=== PATIENT | male | born 1965 | race Caucasian/White ===

== ENCOUNTER 2017-09-25 16:11 | Emergency (ER) | END 2017-09-25 20:26 | disposition left against medical advice (07) ==

== ENCOUNTER 2018-06-13 22:34 | Observation (INO) | payer SELFPAY ==
[~2018-06-13] VITALS: Ht 172.7 cm; Wt 103.3 kg
[2018-06-14] VITALS (8 sets, daily range): BP systolic 125–144; BP diastolic 78–87; PULSE 69–92; RESP 18–20; Ht 172.7 cm; Wt 103.3 kg
[2018-06-14] MEDS ORDERED: NITROGLYCERIN (SL) 0.4 MG TAB SL ONE
--- NOTE | 2018-06-14 00:39 | ERD ---
ER Documentation Chief Complaint Chief Complaint LEFT SIDED CHEST PAIN, "PRESSURE", 5/10, RADIATES LEFT ARM HPI This is a 52-year-old male with a history of hypertension who presents to the emergency room for evaluation of chest pain. The patient states his chest pain started 3 hours prior to arrival in the describes as a pressure-like sensation in the center of his chest with radiation to the left arm. Patient states that he also has some numbness and tingling in the left arm which started 30 minutes after his chest pain. The patient states that he has not seen a physician here in the [place] and the last time he saw physician was last year in the country of [facility]. He is not taking any medication at this time except for his hyper tension medication. He does not know the name of it. He denies any fevers or chills or nausea or vomiting associated with this. ROS All systems reviewed and are negative except as per history of present illness. Allergies Allergies: Coded Allergies: No Known Allergies (Verified Allergy, Unknown, 06/13/18) PMhx/Soc Medical and Surgical Hx: pt denies Medical Hx History of Surgery: Yes (LAP NATE ) Hx Alcohol Use: No Hx Substance Use: No Hx Tobacco Use: No Smoking Status: Never smoker Physical Exam Vitals Vital Signs Date Temp Pulse Resp B/P (MAP) Pulse Ox O2 O2 Flow FiO2 Time Delivery Rate 06/13/18 78 16 137/89 95 Room Air 23:15 (105) 06/13/18 97.3 82 18 146/84 95 22:38 (104) Physical Exam INITIAL VITAL SIGNS: Reviewed by me GENERAL: The patient is well developed and appropriate for usual state of health in no apparent distress HEENT: Pupils equal, round, and reactive to light. EOMI. There is no scleral icterus. NECK: C-spine is soft and supple, there is no meningismus. There is no cervical lymphadenopathy. LUNGS: Clear to auscultation bilaterally. There are no rales, wheezes or rhonchi. HEART: Regular rate and rhythm, no murmurs, clicks, rubs or gallops. ABDOMEN: Soft, non-tender, non-distended. There are bowel sounds in all four quadrants. No rebound or guarding. EXTREMITIES: There is no peripheral cyanosis or edema. No focal swelling or erythema. NEUROLOGICAL: The patient moves all four extremities with 5/5 strength. Cranial nerves II - XII are intact. Normal gait. Alert and oriented SKIN: There is no apparent rash or petechiae. HEME/LYMPHATIC: There is no evidence of excessive bruising or lymphedema. PSYCHIATRIC: The patient does not appear anxious or depressed. Result Diagram: 06/13/18231106/13/182311 Results 24 hrs Laboratory Tests Test 06/13/18 23:12 White Blood Count 7.2 10^3/ul Red Blood Count 5.25 10^6/ul Hemoglobin 16.6 g/dl Hematocrit 47.6 % Mean Corpuscular Volume 90.7 fl Mean Corpuscular Hemoglobin 31.6 pg Mean Corpuscular Hemoglobin Concent 34.9 g/dl Red Cell Distribution Width 12.7 % Platelet Count 208 10^3/UL Mean Platelet Volume 9.1 fl Immature Granulocytes % 0.300 % Neutrophils % 50.3 % Lymphocytes % 37.9 % Monocytes % 8.1 % Eosinophils % 2.7 % Basophils % 0.7 % Nucleated Red Blood Cells % 0.0 /100WBC Immature Granulocytes # 0.020 10^3/ul Neutrophils # 3.6 10^3/ul Lymphocytes # 2.7 10^3/ul Monocytes # 0.6 10^3/ul Eosinophils # 0.2 10^3/ul Basophils # 0.1 10^3/ul Nucleated Red Blood Cells # 0.0 10^3/ul Sodium Level 138 mmol/L Potassium Level 4.0 mmol/L Chloride Level 100 mmol/L Carbon Dioxide Level 27 mmol/L Anion Gap 11 Blood Urea Nitrogen 18 mg/dl Creatinine 0.99 mg/dl Est Glomerular Filtrat Rate mL/min > 60 mL/min Glucose Level 296 mg/dl Calcium Level 9.6 mg/dl Troponin I < 0.012 ng/ml Current Medications Medications Dose Sig/Neil Start Time Status Last (Trade) Ordered Route PRN Stop Time Admin Dose Reason Admin 1 tab ONCE ONCE 06/14/18 DC Nitroglycerin SL 00:00 06/14/18 00:01 (Nitroglyceri n (Sl Tab) 0.4 Mg) Procedures/MDM EKG: Rate/Rhythm: [Normal Sinus Rhythm] QRS, ST, T-waves: [Nonspecific T wave abnormalities noted in the anterior lateral leads] Impression: [No evidence of ischemia or arrhythmia] Chest X-ray 1V Interpreted by me: Soft Tissue: No acute abnormalities Bones: No acute abnormalities Mediastinum/Cardiac Silhouette/Lungs: Cardiomegaly This 52-year-old male presents to the ER for evaluation of chest pain. The patient describes the chest pain is substernal with radiation to the back and associated with some mild left arm paresthesias. The patient had an EKG which does show some nonspecific T wave abnormalities. The patient does not have good follow-up as an outpatient is not seen a physician in the [facility] and given his age and risk factors and T wave abnormalities on his EKG with likely undiagnosed diabetes given his hyperglycemia ,the patient will need admission at this time for serial troponins and possible cardiology consult. The patient will be placed on telemetry floor and will be admitted to panel physician. Departure Diagnosis: Primary Impression: Chest pain Additional Impression: Hyperglycemia Condition: CORTEZ Dunbar DO Jun 14, 2018 00:39
[2018-06-14] MEDS ORDERED: ONDANSETRON 4 MG INJ IV PRN ×2 (03:00)
[2018-06-14] MEDS ORDERED: NACL 0.9% 3 ML SYG IV SCH (03:00)
[2018-06-14] MEDS ORDERED: NITROGLYCERIN (SL) 0.4 MG TAB SL PRN (03:00)
[2018-06-14] MEDS ORDERED: ACETAMINOPHEN 325 MG TAB PO PRN ×2 (03:00)
[2018-06-14] MEDS ORDERED: ALBUTEROL/IPRATROPIUM (NEB) 3 ML AMP HHN PRN (03:00)
[2018-06-14] MEDS ORDERED: GLUCOSE GEL 15 GRAM TUBE BUCCAL PRN (03:15)
[2018-06-14] MEDS ORDERED: DEXTROSE 50% 50 ML SYRINGE IV PRN ×2 (03:15)
[2018-06-14] MEDS ORDERED: GLUCAGON 1 MG INJ IM PRN (03:15)
[2018-06-14] MEDS ORDERED: GLUCOSE GEL 15 GRAM TUBE PO PRN ×2 (03:15)
--- NOTE | 2018-06-14 05:15 | HP ---
Date/Time of Note Date/Time of Note DATE: 06/14/18 TIME: 05:10 Assessment/Plan VTE Prophylaxis Pharmacological prophylaxis: heparin Lines/Catheters IV Catheter Type (from Nrsg): Saline Lock Assessment/Plan Assessment/Plan 1. Chest pain with abnormal EKG (TWI) -Admit to telemetry unit -Rule out ACS -Supplemental oxygen, aspirin, statin. As needed nitro and morphine. Beta- arabella if blood pressure and heart rate tolerates -Trend troponin -2D echo and cardiology consult -Check A1c, fasting lipid and TSH in a.m. 2. Hyperglycemia, likely undiagnosed diabetes -Check A1c -Insulin while in house Result Diagram: 06/13/18 2312 06/13/18 2312 Results 24hrs Laboratory Tests Test 06/13/18 23:12 White Blood Count 7.2 Red Blood Count 5.25 Hemoglobin 16.6 Hematocrit 47.6 Mean Corpuscular Volume 90.7 Mean Corpuscular Hemoglobin 31.6 Mean Corpuscular Hemoglobin Concent 34.9 Red Cell Distribution Width 12.7 Platelet Count 208 Mean Platelet Volume 9.1 Immature Granulocytes % 0.300 Neutrophils % 50.3 Lymphocytes % 37.9 Monocytes % 8.1 Eosinophils % 2.7 Basophils % 0.7 Nucleated Red Blood Cells % 0.0 Immature Granulocytes # 0.020 Neutrophils # 3.6 Lymphocytes # 2.7 Monocytes # 0.6 Eosinophils # 0.2 Basophils # 0.1 Nucleated Red Blood Cells # 0.0 Sodium Level 138 Potassium Level 4.0 Chloride Level 100 Carbon Dioxide Level 27 Anion Gap 11 Blood Urea Nitrogen 18 Creatinine 0.99 Est Glomerular Filtrat Rate mL/min > 60 Glucose Level 296 H Calcium Level 9.6 Troponin I < 0.012 HPI/ROS Admit Date/Time Admit Date/Time Jun 14, 2018 at 02:36 Hx of Present Illness This is a 52-year-old male with no significant past medical history presented to ER complaining of chest pain. Pain started a few hours prior to arrival to the ER. It's mainly left-sided, that is started in the middle of his chest. Reported associated left arm numbness. Denied associated nausea/vomiting or diaphoresis. Also denies shortness of breath. When presented to ER, vitals were stable. First troponin negative. EKG shows T wave inversion without ST elevation or depression. CBC and CMP unremarkable except a glucose of 296. Chest x-ray without acute findings. PMH/Family/Social Past Medical History Medical History: other (See HPI) Medications Current Medications Ondansetron HCl (Zofran Inj) 4 mg ER BRIDGE PRN IV NAUSEA/VOMITING; Start 06/14/18 at 03:00; Stop 06/15/18 at 02:59 Acetaminophen (Tylenol Tab) 650 mg ER BRIDGE PRN PO .MILD PAIN 1-3 OR TEMP; Start 06/14/18 at 03:00; Stop 06/15/18 at 02:59 IV Flush (NS 3 ml) 3 ml PER PROTOCOL IV ; Start 06/14/18 at 03:00 Ondansetron HCl (Zofran Inj) 4 mg Q6H PRN IV NAUSEA/VOMITING; Start 06/14/18 at 03:00 Aspirin (Aspirin) 81 mg DAILY PO ; Start 06/14/18 at 09:00 Nitroglycerin (Nitroglycerin (Sl Tab) 0.4 Mg) 1 tab Q5M PRN SL .CHEST PAIN; Start 06/14/18 at 03:00 Acetaminophen (Tylenol Tab) 650 mg Q6H PRN PO .PAIN 1-3 OR TEMP; Start 06/14/18 at 03:00 Heparin Sodium (Porcine) (Heparin (5000 Units/1ml)) 5,000 unit Q12 SC ; Start 06/14/18 at 09:00 Albuterol/ Ipratropium (Duoneb) 3 ml Q2H RESP THERAPY PRN HHN SHORTNESS OF BREATH; Start 06/14/18 at 03:00 Diagnostic Test (Pha) (Accu-Chek) 1 ea 02 XX ; Start 06/15/18 at 02:00 Insulin Glargine (Lantus) 15 units DAILY@2000 SC ; Start 06/14/18 at 20:00 Insulin Aspart (Novolog Insulin Pen) 5 unit WITH MEALS SC ; Start 06/14/18 at 08:00 Insulin Aspart (Novolog Insulin Pen) NOVOLOG *MODERATE* ALGORITHM WITH MEALS BEDTIME SC ; Start 06/14/18 at 08:00 Miscellaneous Information 1 ea NOTE XX ; Start 06/14/18 at 03:15 Glucose (Glutose) 15 gm Q15M PRN PO DECREASED GLUCOSE; Start 06/14/18 at 03:15 Glucose (Glutose) 22.5 gm Q15M PRN PO DECREASED GLUCOSE; Start 06/14/18 at 03:15 Dextrose (D50w Syringe) 25 ml Q15M PRN IV DECREASED GLUCOSE; Start 06/14/18 at 03:15 Dextrose (D50w Syringe) 50 ml Q15M PRN IV DECREASED GLUCOSE; Start 06/14/18 at 03:15 Glucagon (Glucagen) 1 mg Q15M PRN IM DECREASED GLUCOSE; Start 06/14/18 at 03:15 Glucose (Glutose) 15 gm Q15M PRN BUCCAL DECREASED GLUCOSE; Start 06/14/18 at 03:15 Coded Allergies: No Known Allergies (Verified Allergy, Unknown, 06/13/18) Past Surgical History Past Surgical Hx: other (See HPI) Family History Significant Family History: no pertinent family hx Social History Alcohol Use: none Smoking Status: Never smoker Drug Use: none Exam/Review of Systems Vital Signs Vitals Vital Signs Date Temp Pulse Resp B/P (MAP) Pulse Ox O2 O2 Flow FiO2 Time Delivery Rate 06/14/18 84 16 130/93 98 Room Air 03:39 (105) 06/13/18 97.3 22:38 Exam Constitutional: other (No acute distress) Head: normocephalic, atraumatic Eyes: EOMI, PERRL Respiratory: clear to auscultation, normal air movement Cardiovascular: regular rate and rhythm, nl pulses Gastrointestinal: soft, non-tender Extremities: normal pulses LYN CAMACHO MD Jun 14, 2018 05:15
[2018-06-14] MEDS ORDERED: ASPIRIN 81 MG TAB PO SCH (09:00)
[2018-06-14] MEDS ORDERED: HEPARIN 5,000 UNIT/1 ML VIAL SC SCH (09:00)
[2018-06-14] MEDS ORDERED: METOPROLOL 25 MG TAB PO SCH (09:00)
[2018-06-14] MEDS: INSULIN ASPART [NOVOLOG] 3 ML PEN SC SCH ×5 (09:42→18:00)
--- NOTE | 2018-06-14 12:56 | PN ---
Date/Time of Note Date/Time of Note DATE: 06/14/18 TIME: 12:53 Assessment/Plan VTE Prophylaxis SCD applied (from Nsg): No SCD contraindicated: other Pharmacological prophylaxis: heparin Lines/Catheters IV Catheter Type (from Nrsg): Saline Lock Assessment/Plan Hospital Course S: No acute events overnight, waiting to be seen by cardiology team. Denies any chest pain presently. O: VS - see below PE: GENERAL: Lying in bed, no acute distress HEENT: Pupils equal, round, and reactive to light. EOMI. There is no scleral icterus. NECK: C-spine is soft and supple, there is no meningismus. There is no cervi gerri lymphadenopathy. LUNGS: Clear to auscultation bilaterally. There are no rales, wheezes or rhonc hi. HEART: Regular rate and rhythm, no murmurs, clicks, rubs or gallops. ABDOMEN: Soft, non-tender, non-distended. There are bowel sounds in all four quadrants. No rebound or guarding. EXTREMITIES: No lower extremity edema bilaterally NEUROLOGICAL: No focal deficit Assessment/Plan: 52-year-old male who presents with: 1. Chest pain -EKG with abnormal findings (TWI), troponin negative thus far. -Admit to telemetry unit-Rule out ACS -Continue supplemental oxygen, aspirin, statin. As needed nitro and morphine. Beta-arabella if blood pressure and heart rate tolerates -Trend troponin -Follow-up results of 2D echo and will obtain cardiology consult -Follow-up results of A1c, fasting lipid and TSH in a.m. 2. Hyperglycemia-sugars are in the 300 range when the patient was admitted- likely undiagnosed diabetes. Sugars improved since admission. -Follow-up results of A1c -Continue insulin sliding scale and Lantus while in house Result Diagram: 06/14/18 0525 06/14/18 0525 Results 24hrs Laboratory Tests Test 06/13/18 23:12 06/14/18 05:25 06/14/18 08:31 06/14/18 10:35 White Blood Count 7.2 7.0 Red Blood Count 5.25 5.26 Hemoglobin 16.6 16.4 Hematocrit 47.6 46.9 Mean Corpuscular 90.7 89.2 Volume Mean Corpuscular 31.6 31.2 Hemoglobin Mean Corpuscular 34.9 35.0 Hemoglobin Concent Red Cell 12.7 13.0 Distribution Width Platelet Count 208 193 Mean Platelet Volume 9.1 9.4 Immature 0.300 0.300 Granulocytes % Neutrophils % 50.3 50.4 Lymphocytes % 37.9 38.4 Monocytes % 8.1 7.3 Eosinophils % 2.7 3.0 Basophils % 0.7 0.6 Nucleated Red Blood 0.0 0.0 Cells % Immature 0.020 0.020 Granulocytes # Neutrophils # 3.6 3.5 Lymphocytes # 2.7 2.7 Monocytes # 0.6 0.5 Eosinophils # 0.2 0.2 Basophils # 0.1 0.0 Nucleated Red Blood 0.0 0.0 Cells # Sodium Level 138 140 Potassium Level 4.0 3.9 Chloride Level 100 103 Carbon Dioxide Level 27 25 Anion Gap 11 12 Blood Urea Nitrogen 18 16 Creatinine 0.99 0.84 Est Glomerular > 60 > 60 Filtrat Rate mL/min Glucose Level 296 H 174 # Calcium Level 9.6 9.3 Troponin I < 0.012 < 0.012 < 0.012 Magnesium Level 1.9 Total Bilirubin 0.5 Direct Bilirubin 0.00 Indirect Bilirubin 0.5 Aspartate Amino 38 Transf (AST/SGOT) Alanine 64 Aminotransferase (AL T/SGPT) Alkaline Phosphatase 99 Creatine Kinase 71 77 Creatine Kinase 0.5 0.3 Index Creatinine Kinase MB 0.38 0.24 (Mass) Total Protein 7.5 Albumin 4.2 Globulin 3.30 H Albumin/Globulin 1.27 Ratio Triglycerides Level 244 H Cholesterol Level 116 LDL Cholesterol, 37 Calculated HDL Cholesterol 30 Cholesterol/HDL 3.8 Ratio Thyroid Stimulating 1.860 Hormone (TSH) Bedside Glucose 212 Test 06/14/18 12:07 Bedside Glucose 170 Exam/Review of Systems Exam Vitals Vital Signs Date Temp Pulse Resp B/P (MAP) Pulse Ox O2 O2 Flow FiO2 Time Delivery Rate 06/14/18 70 12:00 06/14/18 99.0 20 125/85 93 11:29 (98) 06/14/18 Room Air 03:39 Results Results 24hrs Laboratory Tests Test 06/13/18 23:12 06/14/18 05:25 06/14/18 08:31 06/14/18 10:35 White Blood Count 7.2 7.0 Red Blood Count 5.25 5.26 Hemoglobin 16.6 16.4 Hematocrit 47.6 46.9 Mean Corpuscular 90.7 89.2 Volume Mean Corpuscular 31.6 31.2 Hemoglobin Mean Corpuscular 34.9 35.0 Hemoglobin Concent Red Cell 12.7 13.0 Distribution Width Platelet Count 208 193 Mean Platelet Volume 9.1 9.4 Immature 0.300 0.300 Granulocytes % Neutrophils % 50.3 50.4 Lymphocytes % 37.9 38.4 Monocytes % 8.1 7.3 Eosinophils % 2.7 3.0 Basophils % 0.7 0.6 Nucleated Red Blood 0.0 0.0 Cells % Immature 0.020 0.020 Granulocytes # Neutrophils # 3.6 3.5 Lymphocytes # 2.7 2.7 Monocytes # 0.6 0.5 Eosinophils # 0.2 0.2 Basophils # 0.1 0.0 Nucleated Red Blood 0.0 0.0 Cells # Sodium Level 138 140 Potassium Level 4.0 3.9 Chloride Level 100 103 Carbon Dioxide Level 27 25 Anion Gap 11 12 Blood Urea Nitrogen 18 16 Creatinine 0.99 0.84 Est Glomerular > 60 > 60 Filtrat Rate mL/min Glucose Level 296 H 174 # Calcium Level 9.6 9.3 Troponin I < 0.012 < 0.012 < 0.012 Magnesium Level 1.9 Total Bilirubin 0.5 Direct Bilirubin 0.00 Indirect Bilirubin 0.5 Aspartate Amino 38 Transf (AST/SGOT) Alanine 64 Aminotransferase (AL T/SGPT) Alkaline Phosphatase 99 Creatine Kinase 71 77 Creatine Kinase 0.5 0.3 Index Creatinine Kinase MB 0.38 0.24 (Mass) Total Protein 7.5 Albumin 4.2 Globulin 3.30 H Albumin/Globulin 1.27 Ratio Triglycerides Level 244 H Cholesterol Level 116 LDL Cholesterol, 37 Calculated HDL Cholesterol 30 Cholesterol/HDL 3.8 Ratio Thyroid Stimulating 1.860 Hormone (TSH) Bedside Glucose 212 Test 06/14/18 12:07 Bedside Glucose 170 Medications Medication Current Medications Ondansetron HCl (Zofran Inj) 4 mg ER BRIDGE PRN IV NAUSEA/VOMITING; Start 06/14/18 at 03:00; Stop 06/15/18 at 02:59 Acetaminophen (Tylenol Tab) 650 mg ER BRIDGE PRN PO .MILD PAIN 1-3 OR TEMP; Start 06/14/18 at 03:00; Stop 06/15/18 at 02:59 IV Flush (NS 3 ml) 3 ml PER PROTOCOL IV ; Start 06/14/18 at 03:00 Ondansetron HCl (Zofran Inj) 4 mg Q6H PRN IV NAUSEA/VOMITING; Start 06/14/18 at 03:00 Aspirin (Aspirin) 81 mg DAILY PO Last administered on 06/14/18at 09:32; Admin Dose 81 MG; Start 06/14/18 at 09:00 Nitroglycerin (Nitroglycerin (Sl Tab) 0.4 Mg) 1 tab Q5M PRN SL .CHEST PAIN; Start 06/14/18 at 03:00 Acetaminophen (Tylenol Tab) 650 mg Q6H PRN PO .PAIN 1-3 OR TEMP; Start 06/14/18 at 03:00 Heparin Sodium (Porcine) (Heparin (5000 Units/1ml)) 5,000 unit Q12 SC Last administered on 06/14/18at 10:25; Admin Dose 5,000 UNIT; Start 06/14/18 at 09:00 Albuterol/ Ipratropium (Duoneb) 3 ml Q2H RESP THERAPY PRN HHN SHORTNESS OF BREATH; Start 06/14/18 at 03:00 Diagnostic Test (Pha) (Accu-Chek) 1 ea 02 XX ; Start 06/15/18 at 02:00 Insulin Glargine (Lantus) 15 units DAILY@2000 SC ; Start 06/14/18 at 20:00 Insulin Aspart (Novolog Insulin Pen) 5 unit WITH MEALS SC Last administered on 06/14/18at 09:43; Admin Dose 5 UNIT; Start 06/14/18 at 08:00 Insulin Aspart (Novolog Insulin Pen) NOVOLOG *MODERATE* ALGORITHM WITH MEALS BEDTIME SC Last administered on 06/14/18at 09:42; Admin Dose 4 UNIT; Start 06/14/18 at 08:00 Miscellaneous Information 1 ea NOTE XX ; Start 06/14/18 at 03:15 Glucose (Glutose) 15 gm Q15M PRN PO DECREASED GLUCOSE; Start 06/14/18 at 03:15 Glucose (Glutose) 22.5 gm Q15M PRN PO DECREASED GLUCOSE; Start 06/14/18 at 03:15 Dextrose (D50w Syringe) 25 ml Q15M PRN IV DECREASED GLUCOSE; Start 06/14/18 at 03:15 Dextrose (D50w Syringe) 50 ml Q15M PRN IV DECREASED GLUCOSE; Start 06/14/18 at 03:15 Glucagon (Glucagen) 1 mg Q15M PRN IM DECREASED GLUCOSE; Start 06/14/18 at 03:15 Glucose (Glutose) 15 gm Q15M PRN BUCCAL DECREASED GLUCOSE; Start 06/14/18 at 03:15 Atorvastatin Calcium (Lipitor) 40 mg HS PO ; Start 06/14/18 at 21:00 Metoprolol Tartrate (Lopressor) 12.5 mg BID PO Last administered on 06/14/18at 09:33; Admin Dose 12.5 MG; Start 06/14/18 at 09:00 NILS CARREON Jun 14, 2018 12:56
--- NOTE | 2018-06-14 15:08 | RADRPT ---
Echocardiogram Report Patient Name: GLENN HUBERPatient ID: [id number] : 1965 (52y 9m)Study Date: 06/14/2018 8:11:44 AM Gender: MAccession #: [id number] Tech: Jammie Smith [facility] Location: [facility] Ref.Physician: LYN CAMACHO Height(Cm): BSA: Weight(Kg): Quality: Technically Difficult StudyAccount #: Procedures: Echocardiographic Report: Transthoracic echocardiogram with complete 2D, M-Mode, and doppler examination. Indications: Chest Pain. Measurements: 2D/M Mode Doppler Measurement Value Normal Range Measurement Value Normal Range LVIDd 2D 3.5 [ 4.2 - 5.8 ] cm AV Peak Pio 1.0 [ 100.0 - 170.0 ] cm/se c LVIDs 2D 2.3 [ 2.5 - 4.0 ] cm AV Peak PG 4.0 [ 2.0 - 9.0 ] mmHg LVPWd 2D 1.1 [ 0.6 - 1.0 ] cm LVOT Peak Pio 0.9 [ 70.0 - 110.0 ] cm/sec IVSd 2D 1.0 [ 0.6 - 1.0 ] cm LVOT Peak PG 3.0 [ 2.0 - 6.0 ] mmHg AoR Diam 2D 2.9 [ 2.6 - 3.4 ] cm MV E Peak Pio 0.5 [ 60.0 - 130.0 ] cm/sec EDV 2D 51.9 [ 62.0 - 150.0 ] ml MV A Peak Pio 0.7 [ 100.0 - 120.0 ] cm/se c ESV 2D 17.9 [ 21.0 - 61.0 ] ml MV E/A 0.8 [ 0.8 - 1.5 ] ratio EF 2D 65.5 [ 52.0 - 72.0 ] percent MV PHT 41.0 [ 20.0 - 100.0 ] msec LA Dimen 2D 3.8 [ 3.0 - 4.0 ] cm MV Decel Time 141 [ 104 - 258 ] msec MV Decel Morrison 4 Lat E` Pio 0.1 [ 10.0 - 15.0 ] cm/sec Lateral E/E` 4.9 [ 1.0 - 2.0 ] ratio Med E` Pio 0.1 cm/sec MV E/A 0.8 [ 0.8 - 1.5 ] ratio MVA PHT 5.4 [ 2.0 - 4.0 ] cm2 Findings: Left Ventricle: Normal left ventricular systolic function. Normal left ventricular cavity size. Normal left ventricular wall thickness. Ejection fraction is visually estimated at 55-60 %. Tissue Doppler/Mitral Doppler indices are consistent with impaired relaxation (Stage I diastolic dysfunction). Right Ventricle: Normal right ventricular size. Normal right ventricular systolic function. Left Atrium: The left atrium is normal in size. Right Atrium: The right atrium is normal in size. Atrial Septum: Normal atrial septum. Ventricular septum: Normal/intact ventricular septum. Mitral Valve: Normal appearance of the mitral valve. No mitral valve regurgitation is seen. Aortic Valve: Normal appearance of the aortic valve. No aortic regurgitation. Tricuspid Valve: Normal appearance of the tricuspid valve. No evidence of tricuspid regurgitation. Pulmonic Valve: Normal pulmonic valve appearance. No evidence of pulmonic regurgitation. Pericardium: Normal pericardium with no significant pericardial effusion. Aorta: Normal aortic root. IVC: The IVC is not well visualized. Conclusions: Normal left ventricular systolic function. Normal left ventricular cavity size. Normal left ventricular wall thickness. Ejection fraction is visually estimated at 55-60 %. Tissue Doppler/Mitral Doppler indices are consistent with impaired relaxation (Stage I diastolic dysfunction). ). Electronically Signed By: Yovanny Hickman 2018-06-14 15:08:01 PDT
--- NOTE | 2018-06-14 16:03 | CONS ---
Assessment/Plan Assessment/Plan Hospital Course (Demo Recall) Assessment: Chest pain Diabetes mellitus - new diagnosis Recommendations: -ruled out for myocardial infarction -echocardiogram normal -outpatient cardiac stress testing -aspirin 81mg daily Consultation Date/Type/Reason Admit Date/Time Jun 14, 2018 at 02:36 Type of Consult Cardiology Reason for Consultation chest pain Date/Time of Note DATE: 06/14/18 TIME: 15:59 Hx of Present Illness The patient is a 52 year-old male who presented with chest pain. He reports a left-sided chest pressure with radiation down his left arm which started while he was seated watching television. The pain lasted for one hour and then resolved. He has been free of chest pain ever since. EKG showed sinus rhythm with nonspecific T wave flattening. Troponins have been negative x 3. 14 point review of systems negative other than per HPI. Past Medical History Medical History: no pertinent history Medications Current Medications Ondansetron HCl (Zofran Inj) 4 mg ER BRIDGE PRN IV NAUSEA/VOMITING; Start 06/14/18 at 03:00; Stop 06/15/18 at 02:59 Acetaminophen (Tylenol Tab) 650 mg ER BRIDGE PRN PO .MILD PAIN 1-3 OR TEMP; Start 06/14/18 at 03:00; Stop 06/15/18 at 02:59 IV Flush (NS 3 ml) 3 ml PER PROTOCOL IV ; Start 06/14/18 at 03:00 Ondansetron HCl (Zofran Inj) 4 mg Q6H PRN IV NAUSEA/VOMITING; Start 06/14/18 at 03:00 Aspirin (Aspirin) 81 mg DAILY PO Last administered on 06/14/18at 09:32; Admin Dose 81 MG; Start 06/14/18 at 09:00 Nitroglycerin (Nitroglycerin (Sl Tab) 0.4 Mg) 1 tab Q5M PRN SL .CHEST PAIN; Start 06/14/18 at 03:00 Acetaminophen (Tylenol Tab) 650 mg Q6H PRN PO .PAIN 1-3 OR TEMP; Start 06/14/18 at 03:00 Heparin Sodium (Porcine) (Heparin (5000 Units/1ml)) 5,000 unit Q12 SC Last administered on 06/14/18at 10:25; Admin Dose 5,000 UNIT; Start 06/14/18 at 09:00 Albuterol/ Ipratropium (Duoneb) 3 ml Q2H RESP THERAPY PRN HHN SHORTNESS OF BREATH; Start 06/14/18 at 03:00 Diagnostic Test (Pha) (Accu-Chek) 1 ea 02 XX ; Start 06/15/18 at 02:00 Insulin Glargine (Lantus) 15 units DAILY@2000 SC ; Start 06/14/18 at 20:00 Insulin Aspart (Novolog Insulin Pen) 5 unit WITH MEALS SC Last administered on 06/14/18at 13:19; Admin Dose 5 UNIT; Start 06/14/18 at 08:00 Insulin Aspart (Novolog Insulin Pen) NOVOLOG *MODERATE* ALGORITHM WITH MEALS BEDTIME SC Last administered on 06/14/18at 13:19; Admin Dose 2 UNIT; Start 06/14/18 at 08:00 Miscellaneous Information 1 ea NOTE XX ; Start 06/14/18 at 03:15 Glucose (Glutose) 15 gm Q15M PRN PO DECREASED GLUCOSE; Start 06/14/18 at 03:15 Glucose (Glutose) 22.5 gm Q15M PRN PO DECREASED GLUCOSE; Start 06/14/18 at 03:15 Dextrose (D50w Syringe) 25 ml Q15M PRN IV DECREASED GLUCOSE; Start 06/14/18 at 03:15 Dextrose (D50w Syringe) 50 ml Q15M PRN IV DECREASED GLUCOSE; Start 06/14/18 at 03:15 Glucagon (Glucagen) 1 mg Q15M PRN IM DECREASED GLUCOSE; Start 06/14/18 at 03:15 Glucose (Glutose) 15 gm Q15M PRN BUCCAL DECREASED GLUCOSE; Start 06/14/18 at 03:15 Atorvastatin Calcium (Lipitor) 40 mg HS PO ; Start 06/14/18 at 21:00 Metoprolol Tartrate (Lopressor) 12.5 mg BID PO Last administered on 06/14/18at 09:33; Admin Dose 12.5 MG; Start 06/14/18 at 09:00 Allergies: Coded Allergies: No Known Allergies (Verified Allergy, Unknown, 06/13/18) Past Surgical History Past Surgical Hx: cholecystectomy Family History Significant Family History: no pertinent family hx Social History Alcohol Use: none Smoking Status: Never smoker Drug Use: none Exam/Review of Systems Vital Signs Vitals Vital Signs Date Temp Pulse Resp B/P (MAP) Pulse Ox O2 O2 Flow FiO2 Time Delivery Rate 06/14/18 98.9 92 20 144/86 94 15:41 (105) 06/14/18 Room Air 03:39 Exam Constitutional: alert, well developed Psych: no complaints, nl mood/affect Head: normocephalic, atraumatic Eyes: nl conjunctiva, nl lids ENMT: nl external ears & nose, nl nasal mucosa & septum Neck: supple, non-tender; No jvd Respiratory: clear to auscultation, normal air movement Cardiovascular: regular rate and rhythm Gastrointestinal: soft, non-tender Musculoskeletal: nl extremities to inspection Extremities: No cyanosis, No clubbing, No edema Neurological: nl mental status, nl speech Labs Result Diagram: 06/14/1852406/14/18524 Results 24hrs Laboratory Tests Test 06/13/18 23:12 06/14/18 05:25 06/14/18 08:31 06/14/18 10:35 White Blood Count 7.2 7.0 Red Blood Count 5.25 5.26 Hemoglobin 16.6 16.4 Hematocrit 47.6 46.9 Mean Corpuscular 90.7 89.2 Volume Mean Corpuscular 31.6 31.2 Hemoglobin Mean Corpuscular 34.9 35.0 Hemoglobin Concent Red Cell 12.7 13.0 Distribution Width Platelet Count 208 193 Mean Platelet Volume 9.1 9.4 Immature 0.300 0.300 Granulocytes % Neutrophils % 50.3 50.4 Lymphocytes % 37.9 38.4 Monocytes % 8.1 7.3 Eosinophils % 2.7 3.0 Basophils % 0.7 0.6 Nucleated Red Blood 0.0 0.0 Cells % Immature 0.020 0.020 Granulocytes # Neutrophils # 3.6 3.5 Lymphocytes # 2.7 2.7 Monocytes # 0.6 0.5 Eosinophils # 0.2 0.2 Basophils # 0.1 0.0 Nucleated Red Blood 0.0 0.0 Cells # Sodium Level 138 140 Potassium Level 4.0 3.9 Chloride Level 100 103 Carbon Dioxide Level 27 25 Anion Gap 11 12 Blood Urea Nitrogen 18 16 Creatinine 0.99 0.84 Est Glomerular > 60 > 60 Filtrat Rate mL/min Glucose Level 296 H 174 # Calcium Level 9.6 9.3 Troponin I < 0.012 < 0.012 < 0.012 Hemoglobin A1c 7.1 H Magnesium Level 1.9 Total Bilirubin 0.5 Direct Bilirubin 0.00 Indirect Bilirubin 0.5 Aspartate Amino 38 Transf (AST/SGOT) Alanine 64 Aminotransferase (AL T/SGPT) Alkaline Phosphatase 99 Creatine Kinase 71 77 Creatine Kinase 0.5 0.3 Index Creatinine Kinase MB 0.38 0.24 (Mass) Total Protein 7.5 Albumin 4.2 Globulin 3.30 H Albumin/Globulin 1.27 Ratio Triglycerides Level 244 H Cholesterol Level 116 LDL Cholesterol, 37 Calculated HDL Cholesterol 30 Cholesterol/HDL 3.8 Ratio Thyroid Stimulating 1.860 Hormone (TSH) Bedside Glucose 212 Test 06/14/18 12:07 Bedside Glucose 170 Medications Medications Current Medications Ondansetron HCl (Zofran Inj) 4 mg ER BRIDGE PRN IV NAUSEA/VOMITING; Start 06/14/18 at 03:00; Stop 06/15/18 at 02:59 Acetaminophen (Tylenol Tab) 650 mg ER BRIDGE PRN PO .MILD PAIN 1-3 OR TEMP; Start 06/14/18 at 03:00; Stop 06/15/18 at 02:59 IV Flush (NS 3 ml) 3 ml PER PROTOCOL IV ; Start 06/14/18 at 03:00 Ondansetron HCl (Zofran Inj) 4 mg Q6H PRN IV NAUSEA/VOMITING; Start 06/14/18 at 03:00 Aspirin (Aspirin) 81 mg DAILY PO Last administered on 06/14/18at 09:32; Admin Dose 81 MG; Start 06/14/18 at 09:00 Nitroglycerin (Nitroglycerin (Sl Tab) 0.4 Mg) 1 tab Q5M PRN SL .CHEST PAIN; Start 06/14/18 at 03:00 Acetaminophen (Tylenol Tab) 650 mg Q6H PRN PO .PAIN 1-3 OR TEMP; Start 06/14/18 at 03:00 Heparin Sodium (Porcine) (Heparin (5000 Units/1ml)) 5,000 unit Q12 SC Last administered on 06/14/18at 10:25; Admin Dose 5,000 UNIT; Start 06/14/18 at 09:00 Albuterol/ Ipratropium (Duoneb) 3 ml Q2H RESP THERAPY PRN HHN SHORTNESS OF BREATH; Start 06/14/18 at 03:00 Diagnostic Test (Pha) (Accu-Chek) 1 ea 02 XX ; Start 06/15/18 at 02:00 Insulin Glargine (Lantus) 15 units DAILY@2000 SC ; Start 06/14/18 at 20:00 Insulin Aspart (Novolog Insulin Pen) 5 unit WITH MEALS SC Last administered on 06/14/18at 13:19; Admin Dose 5 UNIT; Start 06/14/18 at 08:00 Insulin Aspart (Novolog Insulin Pen) NOVOLOG *MODERATE* ALGORITHM WITH MEALS BEDTIME SC Last administered on 06/14/18at 13:19; Admin Dose 2 UNIT; Start 06/14/18 at 08:00 Miscellaneous Information 1 ea NOTE XX ; Start 06/14/18 at 03:15 Glucose (Glutose) 15 gm Q15M PRN PO DECREASED GLUCOSE; Start 06/14/18 at 03:15 Glucose (Glutose) 22.5 gm Q15M PRN PO DECREASED GLUCOSE; Start 06/14/18 at 03:15 Dextrose (D50w Syringe) 25 ml Q15M PRN IV DECREASED GLUCOSE; Start 06/14/18 at 03:15 Dextrose (D50w Syringe) 50 ml Q15M PRN IV DECREASED GLUCOSE; Start 06/14/18 at 03:15 Glucagon (Glucagen) 1 mg Q15M PRN IM DECREASED GLUCOSE; Start 06/14/18 at 03:15 Glucose (Glutose) 15 gm Q15M PRN BUCCAL DECREASED GLUCOSE; Start 06/14/18 at 03:15 Atorvastatin Calcium (Lipitor) 40 mg HS PO ; Start 06/14/18 at 21:00 Metoprolol Tartrate (Lopressor) 12.5 mg BID PO Last administered on 06/14/18at 09:33; Admin Dose 12.5 MG; Start 06/14/18 at 09:00 DRAKE BAÑEULOS MD Jun 14, 2018 16:03
--- NOTE | 2018-06-14 17:36 | PDOCDIS ---
Discharge Instructions CONDITION [id number] Patient Condition: [id number] Stable HOME CARE INSTRUCTIONS: [id number] Diet Instructions: [id number] Low Fat /Cholesterol ACTIVITY: [id number] Activity Restrictions: [id number] Slowly Increase Activity Rest between Activity Avoid heavy lifting FOLLOW UP/APPOINTMENTS Follow-up Plan Please take your medications as prescribed, see your doctor in the clinic in the next 1 week. NILS CARREON Jun 14, 2018 17:36
[2018-06-14] MEDS ORDERED: ASPI-831 PO (17:38)
[2018-06-14] MEDS ORDERED: ATOR10TA65 PO (17:38)
[2018-06-14] MEDS ORDERED: METF-849 PO (17:38)
--- NOTE | 2018-06-14 17:42 | DS ---
Date/Time of Note Date/Time of Note DATE: 06/14/18 TIME: 17:39 Discharge Summary Admission/Discharge Info Admit Date/Time Jun 14, 2018 at 02:36 Discharge Date/Time Discharge Diagnosis 1. Chest pain -EKG with abnormal findings (TWI), troponin negative thus far, ruled out for acute coronary syndrome, evaluated by cardiology team recommends outpatient stress test. 2. Hyperglycemia-sugars were 300 range on admission, improved, A1c 7.1, started on low-dose metformin 3. High triglycerides: Started on low-dose Lipitor Patient Condition: Stable Procedures 2D echo: Conclusions: Normal left ventricular systolic function. Normal left ventricular cavity size. Normal left ventricular wall thickness. Ejection fraction is visually estimated at 55-60 %. Tissue Doppler/Mitral Doppler indices are consistent with impaired relaxation (Stage I diastolic dysfunction). Hx of Present Illness 52-year-old male with no significant past medical history presented to ER complaining of chest pain. Pain started a few hours prior to arrival to the ER. It's mainly left-sided, that is started in the middle of his chest. Reported associated left arm numbness. Denied associated nausea/vomiting or diaphoresis. Also denies shortness of breath. When presented to ER, vitals were stable. First troponin negative. EKG shows T wave inversion without ST elevation or depression. CBC and CMP unremarkable except a glucose of 296. Chest x-ray without acute findings. Hospital Course Patient was admitted to telemetry floor. He ruled out for acute coronary syndrome. He was found with elevated triglyceride levels and started on statin medicine. Patient also found with elevated blood sugars on admission 300 range, no DKA, but this improved with appropriate insulin regimen. Patient was able to ambulate, tolerated p.o. diet. Cardiology team felt that, because the patient ruled out for acute coronary syndrome, he could undergo outpatient cardiac stress test for further cardiac workup. A1c is found to be 7.1, started on low- dose metformin on the day of discharge. Patient will be discharged home later this evening in improved condition. See below for full list of discharge medications. Home Meds Active Scripts Aspirin (Aspirin) 81 Mg Chew, 81 MG PO DAILY, #30 TAB 2 Refills Prov:NILS CARREON S. 06/14/18 Atorvastatin Calcium (Atorvastatin Calcium) 10 Mg Tablet, 10 MG PO QHS, #30 TAB 2 Refills Prov:NILS CARREON S. 06/14/18 Metformin* (Glucophage*) 500 Mg Tab, 250 MG PO WITH BREAKFAST DINNE, #60 TAB 1 Refill Prov:NILS CARREON 06/14/18 Follow-up Plan Please take your medications as prescribed, see your doctor in the clinic in the next 1 week. Primary Care Provider Care Physician No Primary Time spent on discharge: > 30 minutes Pending Labs Laboratory Tests Test 06/13/18 23:12 06/14/18 05:25 06/14/18 08:31 06/14/18 10:35 White Blood 7.2 7.0 Count 10^3/ul (4.8-10 10^3/ul (4.8-1 .8) 0.8) Red Blood 5.25 5.26 Count 10^6/ul (4.70-6 10^6/ul (4.70- .10) 6.10) Hemoglobin 16.6 16.4 g/dl (14.0-18.0 g/dl (14.0-18. ) 0) Hematocrit 47.6 46.9 % (42.0-52.0) % (42.0-52.0) Mean 90.7 89.2 Corpuscular fl (82.0-101.0) fl (82.0-101.0 Volume ) Mean 31.6 31.2 Corpuscular pg (29.0-33.0) pg (29.0-33.0) Hemoglobin Mean 34.9 35.0 Corpuscular g/dl (32.0-37.0 g/dl (32.0-37. Hemoglobin Conc ) 0) ent Red Cell 12.7 13.0 Distribution % (11.5-14.5) % (11.5-14.5) Width Platelet Count 208 193 10^3/UL (140-41 10^3/UL (140-4 5) 15) Mean Platelet 9.1 9.4 Volume fl (7.4-10.4) fl (7.4-10.4) Immature 0.300 0.300 Granulocytes % % (0.001-0.429) % (0.001-0.429 ) Neutrophils % 50.3 50.4 % (39.0-77.0) % (39.0-77.0) Lymphocytes % 37.9 38.4 % (15.0-51.0) % (15.0-51.0) Monocytes % 8.1 7.3 % (0.0-11.0) % (0.0-11.0) Eosinophils % 2.7 % (0.0-7.0) 3.0 % (0.0-7.0) Basophils % 0.7 % (0.0-2.0) 0.6 % (0.0-2.0) Nucleated Red 0.0 0.0 Blood Cells % /100WBC (0.0-0. /100WBC (0.0-0 0) .0) Immature 0.020 0.020 Granulocytes # 10^3/ul (0.0-0. 10^3/ul (0.0-0 031) .031) Neutrophils # 3.6 3.5 10^3/ul (1.6-7. 10^3/ul (1.6-7 5) .5) Lymphocytes # 2.7 2.7 10^3/ul (0.8-2. 10^3/ul (0.8-2 9) .9) Monocytes # 0.6 0.5 10^3/ul (0.3-0. 10^3/ul (0.3-0 9) .9) Eosinophils # 0.2 0.2 10^3/ul (0.0-0. 10^3/ul (0.0-0 5) .5) Basophils # 0.1 0.0 10^3/ul (0.0-0. 10^3/ul (0.0-0 1) .1) Nucleated Red 0.0 0.0 Blood Cells # 10^3/ul (0.0-0. 10^3/ul (0.0-0 0) .0) Sodium Level 138 140 mmol/L (135-144 mmol/L (135-14 ) 4) Potassium 4.0 3.9 Level mmol/L (3.5-5.1 mmol/L (3.5-5. ) 1) Chloride Level 100 103 mmol/L (97-110) mmol/L (97-110 ) Carbon Dioxide 27 25 Level mmol/L (21-31) mmol/L (21-31) Anion Gap 11 (5-13) 12 (5-13) Blood Urea 18 mg/dl (7-20) 16 Nitrogen mg/dl (7-20) Creatinine 0.99 0.84 mg/dl (0.61-1.2 mg/dl (0.61-1. 4) 24) Est Glomerular > 60 > 60 Filtrat mL/min (>60) mL/min (>60) Rate mL/min Glucose Level 296 174 mg/dl (70-220) mg/dl (70-220) Calcium Level 9.6 9.3 mg/dl (8.4-10.2 mg/dl (8.4-10. ) 2) Troponin I < 0.012 < 0.012 < 0.012 ng/ml (0.000-0. ng/ml (0.000-0 ng/ml (0.000-0 120) .120) .120) Hemoglobin A1c 7.1 % (0-5.9) Magnesium 1.9 Level mg/dl (1.7-2.5 ) Total 0.5 Bilirubin mg/dl (0.2-1.3 ) Direct 0.00 Bilirubin mg/dl (0.00-0. 20) Indirect 0.5 Bilirubin mg/dl (0-1.1) Aspartate Amino 38 Transf (AST/SGO IU/L (15-46) T) Alanine 64 Aminotransferas IU/L (13-69) e (ALT/SGPT) Alkaline 99 Phosphatase IU/L (42-121) Creatine 71 77 Kinase IU/L (23-200) IU/L (23-200) Creatine Kinase 0.5 0.3 Index Creatinine 0.38 0.24 Kinase MB ng/ml (0.0-2.4 ng/ml (0.0-2.4 (Mass) ) ) Total Protein 7.5 g/dl (6.1-8.1) Albumin 4.2 g/dl (3.3-4.9) Globulin 3.30 g/dl (1.3-3.2) Albumin/Globuli 1.27 n Ratio Triglycerides 244 Level mg/dl (0-149) Cholesterol 116 Level mg/dl (100-200 ) LDL 37 mg/dl Cholesterol, Calculated HDL 30 Cholesterol mg/dl (28-71) Cholesterol/HDL 3.8 RATIO Ratio Thyroid 1.860 Stimulating MIU/L (0.465-4 Hormone (TSH) .680) Bedside 212 Glucose mg/dL (70-220) Test 06/14/18 12:07 Bedside 170 Glucose mg/dL (70-220) NILS CARREON Jun 14, 2018 17:42
[2018-06-14] MEDS ORDERED: INSULIN ASPART [NOVOLOG] 3 ML PEN SC SCH (18:00)
[2018-06-14] MEDS ORDERED: INSULIN GLARGINE [LANTus] (100 UNITS/ML) SYG SC SCH ×2 (20:00)
[2018-06-14] MEDS ORDERED: ATORVASTATIN 40 MG TAB PO SCH (21:00)
[2018-06-15] MEDS ORDERED: ACCU-CHEK XX SCH (02:00)
== END 2018-06-14 20:06 | disposition home or self-care (01) ==
LOC: E/R 22:34 → 6WM 06-14 02:36
PROVIDERS: ADMIT Internal Medicine; ATTEND Hospitalist
DX: R07.9 Chest pain, unspecified (principal); I10 Essential (primary) hypertension; E78.1 Pure hyperglyceridemia; E11.65 Type 2 diabetes mellitus with hyperglycemia; Z79.4 Long term (current) use of insulin
CPT/HCPCS: 36415; 71045; 80048; 80053; 80061; 82550; 82553; 82962; 83036; 83735; 84443; 84484; 85025; 93005; 93306; 99285; G0378; J1644; J1815